=== PATIENT | female | born 2005 | race Caucasian/White ===

== ENCOUNTER 2023-01-10 08:38 | Emergency (ER) | payer BC ==
[~2023-01-10] VITALS: Ht 167.6 cm; Wt 50.8 kg
[2023-01-10] MEDS ORDERED: IBUPROFEN 600 MG TABLET PO ONE (09:00)
[2023-01-10] MEDS ORDERED: IBUPROFEN 600 MG TABLET ONE (09:14)
[2023-01-10] MEDS ORDERED: IBUP-1953 PO ×2 (10:48→11:01)
[2023-01-10 11:20] VITALS: BP 131/80; TEMP 98.4; O2SAT 100
== END 2023-01-10 11:22 | disposition home or self-care (01) ==
LOC: ER 09:12
DX: S63.592A Other specified sprain of left wrist, initial encounter (principal); S83.8X2A Sprain of other specified parts of left knee, initial encounter; S02.2XXA Fracture of nasal bones, initial encounter for closed fracture; Z79.899 Other long term (current) drug therapy; V89.2XXA Person injured in unspecified motor-vehicle accident, traffic, initial encounter; Y93.89 Activity, other specified; Y92.89 Other specified places as the place of occurrence of the external cause; Y99.8 Other external cause status
CPT/HCPCS: 70450-TC; 70486-TC; 73110; 73564-TC